=== PATIENT | female | born 1975 | race Caucasian/White ===

== ENCOUNTER 2018-01-03 00:55 | Outpatient (CLI) | payer OTHER, SELFPAY ==
--- NOTE | 2018-01-03 14:00 | MERGE_ITS ---
*[facility]* *[facility]* [address] [place] [address] Date of study: 01/03/2018 Transthoracic Echocardiography M-mode, complete 2D, complete spectral Doppler, and color Doppler *STUDY CONCLUSIONS* Summary: 1. Left ventricle: The cavity size was normal. Wall thickness was normal. Systolic function was normal. The estimated ejection fraction was 55-60%. Wall motion was normal; there were no regional wall motion abnormalities. 2. Right ventricle: The cavity size was normal. Systolic function was normal. 3. Inferior vena cava: The vessel was patent and normal in size. The respirophasic diameter changes were in the normal range (greater than or equal to 50%), consistent with normal central venous pressure. *PATIENT PRESENTATION* Height: 162.6cm ((64in) ) S/D Pressure: 109 / 63 Weight: 72.6kg ((159.7lb) ) BSA: 1.83m^2 Test start time: 02:00 PM. Test stop time: 03:50 PM. 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 This study was interpreted by [facility]. Pertinent images and digital data are archived for permanent storage and are available for subsequent review. No prior study was available for comparison. Study status: Routine. Transthoracic echocardiography. M-mode, complete 2D, complete spectral Doppler, and color Doppler. A Transthoracic Echocardiogram was performed. Scanning was performed from the parasternal, apical, subcostal, and suprasternal notch acoustic windows. Images were obtained using an [id number] cardiac ultrasound machine. Image quality was adequate. Study completion: The patient tolerated the procedure well. There were no complications. History: PMH: Ventricular premature depolarization. PVCs. palpitations. *CARDIAC ANATOMY* Left ventricle: The cavity size was normal. Wall thickness was normal. Systolic function was normal. The estimated ejection fraction was 55-60%. Wall motion was normal; there were no regional wall motion abnormalities. Diastolic parameters were normal. There was no evidence of elevated ventricular filling pressure by Doppler parameters. Aortic valve: Trileaflet; normal thickness leaflets. Mobility was not restricted. Doppler: Transvalvular velocity was within the normal range. There was no stenosis. There was no significant regurgitation. VTI ratio of LVOT to aortic valve: 0.7. Valve area (VTI): 2.1cm^2. Indexed valve area (VTI): 1.1cm^2/m^2. Peak velocity ratio of LVOT to aortic valve: 0.68. Valve area (Vmax): 2cm^2. Indexed valve area (Vmax): 1.1cm^2/m^2. Mean velocity ratio of LVOT to aortic valve: 0.71. Valve area (Vmean): 2.1cm^2. Indexed valve area (Vmean): 1.2cm^2/m^2. Mean gradient (S): 3.5mm Hg. Peak gradient (S): 6.1mm Hg. Aorta: Aortic root: The aortic root was normal in size. Ascending aorta: The ascending aorta was normal in size. Mitral valve: Structurally normal valve. Mobility was not restricted. Doppler: Transvalvular velocity was within the normal range. There was no evidence for stenosis. There was trivial regurgitation. Valve area by pressure half-time: 4.1cm^2. Indexed valve area by pressure half-time: 2.3cm^2/m^2. Left atrium: The atrium was normal in size. Right ventricle: The cavity size was normal. Systolic function was normal. Pulmonic valve: The pulmonary valve appears to be grossly normal. Doppler: Transvalvular velocity was within the normal range. There was no evidence for stenosis. There was trivial regurgitation. Tricuspid valve: Structurally normal valve. Doppler: Transvalvular velocity was within the normal range. There was no evidence for stenosis. There was trivial regurgitation. Pulmonary artery: The main pulmonary artery was normal-sized. Pulmonary systolic pressure was within the normal range, in the range of 20mm Hg to 25mm Hg. Right atrium: The atrium was normal in size. Pericardium: There was no pericardial effusion. Systemic veins: Inferior vena cava: Well visualized. The vessel was patent and normal in size. The respirophasic diameter changes were in the normal range (greater than or equal to 50%), consistent with normal central venous pressure. Baseline ECG: Normal sinus rhythm. Measurements Left ventricle Value Reference LV ID, ED, PLAX 4.6 cm 3.5 - 6.0 LV ID, ES, PLAX 3.3 cm 2.1 - 4.0 LV PW thickness, ED, PLAX 1.0 cm LV end-diastolic volume, 1-p A2C 98 ml LV ejection fraction, 1-p A2C 57 % LV end-diastolic volume, 1-p A4C 103 ml LV ejection fraction, 1-p A4C 55 % LV e', lateral 0.13 m/sec LV E/e', lateral 5 LV e', medial 0.097 m/sec LV E/e', medial 7 LV e', average 0.114 m/sec LV E/e', average 6 Ventricular septum Value Reference IVS thickness, ED, PLAX 0.8 cm LVOT Value Reference LVOT ID, A-P 2.0 cm LVOT area 3 cm^2 LVOT peak velocity, S 0.84 m/sec LVOT mean velocity, S 0.65 m/sec LVOT VTI, S 18.8 cm LVOT peak gradient, S 2.8 mm Hg LVOT mean gradient, S 1.8 mm Hg Stroke volume (SV), LVOT DP 57 ml Stroke index (SV/bsa), LVOT DP 31 ml/m^2 Aortic valve Value Reference Aortic valve peak velocity, S 1.2 m/sec Aortic valve mean velocity, S 0.91 m/sec Aortic valve VTI, S 27.0 cm Aortic mean gradient, S 3.5 mm Hg Aortic peak gradient, S 6.1 mm Hg VTI ratio, LVOT/AV 0.7 Aortic valve area, VTI 2.1 cm^2 Velocity ratio, peak, LVOT/AV 0.68 Aortic valve area, peak velocity 2 cm^2 Velocity ratio, mean, LVOT/AV 0.71 Aortic valve area, mean velocity 2.1 cm^2 Aortic valve area/bsa, mean velocity 1.2 cm^2/m^2 Aorta Value Reference Aortic root ID, ED 2.6 cm Ascending aorta ID, A-P, S 3.0 cm RVOT Value Reference RVOT VTI, S 15.2 cm Left atrium Value Reference LA ID, A-P, ES 3.0 cm LA ID/bsa, A-P 1.6 cm/m^2 <=2.2 LA area, ES, A4C 17.9 cm^2 8.8 - 23.4 LA area, ES, A2C 15 cm^2 LA volume/bsa, ES, 1-p A4C 30 ml/m^2 LA volume, ES, 2-p 42 ml LA volume/bsa, ES, 2-p 23 ml/m^2 LA/aortic root ratio 1.14 Mitral valve Value Reference Mitral E-wave peak velocity 0.65 m/sec Mitral A-wave peak velocity 0.46 m/sec Mitral deceleration time 183 ms 150 - 230 Mitral pressure half-time 53 ms Mitral E/A ratio, peak 1.4 Mitral valve area, PHT, DP 4.1 cm^2 Pulmonary veins Value Reference Pulmonary vein peak velocity, S 0.38 m/sec Pulmonary vein peak velocity, D 0.44 m/sec Pulmonary vein velocity ratio, peak, 0.85 S/D Pulmonary vein A-wave reversal peak 0.24 m/sec velocity Pulmonary vein A-wave reversal 122 ms duration Tricuspid valve Value Reference Tricuspid regurg peak velocity 2.6 m/sec Tricuspid peak RV-RA gradient 27.2 mm Hg Right atrium Value Reference RA area, ES, A4C 16.5 cm^2 8.3 - 19.5 Legend: (L) and (H) lorena values outside specified reference range. I have personally reviewed the images and have reviewed and edited the reported findings. Electronically signed by Asael Wood 01/03/2018 15:22
== END 2018-01-03 01:15 ==
PROVIDERS: PCP Nurse Practitioner Family; Visit Provider Nurse Practitioner Family
DX: R00.1 Bradycardia, unspecified (principal); I49.3 Ventricular premature depolarization
CPT/HCPCS: 93306

== ENCOUNTER 2018-03-15 13:43 | Outpatient (CLI) | payer OTHER, SELFPAY ==
[2018-03-15 15:22] LABS: Anion Gap 9.1 mmol/L (3-11); BUN 15 mg/dL (7-18); CO2 28.9 mmol/L (21.0-32.0); CREATININE 0.84 mg/dL (0.55-1.02); Calcium 9.1 mg/dL (8.5-10.1); Chloride 101 mmol/L (98-107); Cholesterol 216 mg/dL (50-200); Glucose 87 mg/dL (70-100); HDL Cholesterol 61 mg/dL (40-60); LDL CHOLESTEROL 134 mg/dL (<100); Magnesium 1.6 mg/dL (1.8-2.4); Sodium 139 mmol/L (136-145); TSH (W/Ref FT4) 1.13 uIU/mL (0.358-3.74); Triglyceride 77 mg/dL (30-150)
[2018-03-16 12:03] LABS: HIV-1/2 Ag & Ab Screen Negative (NEGAT)
[2018-03-16 16:36] LABS: Syphilis IgG Ab w/Reflex Negative (Negative)
[2018-03-18 11:05] LABS: Hepatitis C Ab w Rflx HCV PCR Negative (NEGAT)
== END 2018-03-15 14:03 ==
PROVIDERS: PCP Nurse Practitioner Family; Visit Provider Nurse Practitioner Family
DX: R00.2 Palpitations (principal); E78.5 Hyperlipidemia, unspecified; N89.8 Other specified noninflammatory disorders of vagina; Z11.3 Encounter for screening for infections with a predominantly sexual mode of transmission; Z11.4 Encounter for screening for human immunodeficiency virus [HIV]; Z11.59 Encounter for screening for other viral diseases
CPT/HCPCS: 36415; 80048; 80061; 83721; 86803; 87389; 83735; 84443; 86780

== ENCOUNTER 2018-03-15 18:52 | Outpatient (REF) | payer OTHER, SELFPAY ==
[2018-03-18 13:56] LABS: Chlamydia Result Negative; GC Result Negative; Specimen Description vaginal
== END 2018-03-15 19:12 ==
LOC: LBN 18:52
PROVIDERS: PCP Nurse Practitioner Family; Visit Provider Nurse Practitioner Family
DX: N89.8 Other specified noninflammatory disorders of vagina (principal); Z11.3 Encounter for screening for infections with a predominantly sexual mode of transmission
CPT/HCPCS: 87491; 87591; 87480; 87510; 87660

== ENCOUNTER 2018-10-10 20:11 | Outpatient (REF) | payer OTHER, SELFPAY ==
[2018-10-11 14:17] LABS: Chlamydia Result Negative; GC Result Negative; Specimen Description vaginal
== END 2018-10-10 20:31 ==
LOC: LBN 20:11
PROVIDERS: PCP Nurse Practitioner Family; Visit Provider Nurse Practitioner Family
DX: N76.0 Acute vaginitis (principal); Z11.3 Encounter for screening for infections with a predominantly sexual mode of transmission
CPT/HCPCS: 87491; 87591; 87480; 87510; 87660

== ENCOUNTER 2018-12-27 10:17 | Outpatient (CLI) | payer OTHER, SELFPAY ==
[2018-12-27 13:31] LABS: Anion Gap 9.9 mmol/L (3-11); BUN 20 mg/dL (7-18); CO2 29.1 mmol/L (21.0-32.0); CREATININE 0.88 mg/dL (0.55-1.02); Calcium 9.1 mg/dL (8.5-10.1); Calculated LDL 117 mg/dL; Chloride 103 mmol/L (98-107); Cholesterol 197 mg/dL (50-200); Glucose 84 mg/dL (70-100); HDL Cholesterol 70 mg/dL (40-60); Potassium 4.1 mmol/L (3.5-5.1); Sodium 142 mmol/L (136-145); Triglyceride 50 mg/dL (30-150)
[2018-12-30 19:31] LABS: Magnesium 1.8 mg/dL (1.8-2.4)
== END 2018-12-27 10:37 ==
PROVIDERS: PCP Nurse Practitioner Family; Visit Provider Nurse Practitioner Family
DX: E78.5 Hyperlipidemia, unspecified (principal); E83.42 Hypomagnesemia
CPT/HCPCS: 36415; 80048; 80061; 83036; 83735

== ENCOUNTER 2020-01-01 10:53 | Outpatient (REF) | payer OTHER, SELFPAY ==
--- NOTE | 2020-01-01 09:20 | PAPFT_PTH ---
PATIENT: Jay Davis LOC: [facility] U#:[id number] AGE/SX: 44/F ROOM: RE01/01/[address]: LAMIN Tarango : 1975 BED: DIS: 01/01/2020 SPEC #: [id number] RECD: 01/01/20 12:57 STATUS: YENNI RERuiz #: [id number] RADHIKA: 01/01/20 09:[address]: Elidia Vázquez DEPT: [facility] Cytology RECD BY: Zakia Olivas Tissues: 1 - CX/ENDOCX FOR PAP SMEARS Procedures: PAP THIN PREP/UVM Screening HPV DNA PROBE Comments: [id number]
== END 2020-01-01 11:13 ==
LOC: LBN 10:53
PROVIDERS: PCP Nurse Practitioner Family; Visit Provider Nurse Practitioner Family
DX: Z12.4 Encounter for screening for malignant neoplasm of cervix (principal); Z11.51 Encounter for screening for human papillomavirus (HPV); Z87.42 Personal history of other diseases of the female genital tract
CPT/HCPCS: 88142; 87624

== ENCOUNTER 2020-08-20 16:22 | Outpatient (REF) | payer SELFPAY ==
[2020-08-23 14:58] LABS: Chlamydia Result Negative (Negative); GC Result Negative (Negative)
== END 2020-08-20 16:23 | disposition home or self-care (01) ==
LOC: LBN 16:22
PROVIDERS: PCP Nurse Practitioner Family; Visit Provider Obstetrics & Gynecology Gynecology
DX: Z11.3 Encounter for screening for infections with a predominantly sexual mode of transmission (principal)
CPT/HCPCS: 87491; 87591

== ENCOUNTER 2020-12-01 16:50 | Outpatient (REF) | payer OTHER, SELFPAY | END 2020-12-01 16:51 | disposition home or self-care (01) | LOC: LBN 16:50 | PROVIDERS: PCP Nurse Practitioner Family; Visit Provider Physician Assistant | DX: L02.412 Cutaneous abscess of left axilla (principal) | CPT/HCPCS: 87070; 87205 ==

== ENCOUNTER 2021-01-28 03:06 | Outpatient (CLI) | payer OTHER, SELFPAY ==
[2021-01-28 13:16] LABS: BUN 17 mg/dL (7-18); Calcium 8.9 mg/dL (8.5-10.1); Glucose 88 mg/dL (74-106)
[2021-01-28 13:17] LABS: Anion Gap 7.6 mmol/L (3-11); CO2 28.4 mmol/L (21.0-32.0); Calculated LDL 103 mg/dL (<100); Chloride 106 mmol/L (98-107); Cholesterol 175 mg/dL (<200); Estimated GFR 59.43 (mL/min/1.73m2); HDL Cholesterol 60 mg/dL (40-60); Potassium 4.3 mmol/L (3.5-5.1); Sodium 142 mmol/L (136-145); Triglyceride 61 mg/dL (<150)
[2021-01-28 14:51] LABS: Hemoglobin A1C 5.1 % (<5.7)
== END 2021-01-28 03:07 | disposition home or self-care (01) ==
LOC: LOS 03:06
PROVIDERS: PCP Nurse Practitioner Family; Visit Provider Nurse Practitioner Family
DX: E78.5 Hyperlipidemia, unspecified (principal)
CPT/HCPCS: 36415; 80048; 80061; 83036

== ENCOUNTER 2021-10-18 10:58 | Day surgery (SDC) | payer OTHER, SELFPAY ==
[2021-10-17 10:25] VITALS: BP 104/72; PULSE 71; RESP 18; TEMP 36.6; O2SAT 99
--- NOTE | 2021-10-17 22:17 | COLE_ITS ---
Colonoscopy Report Date of procedure: 10/18/21 Pre-op diagnosis general: Father had CRC can Post-op diagnosis procedure note: other (polyps) Surgeon: Khloe Moore Anesthesia Type: General:No Airway Estimated blood loss (mL): 1 Pathology: other Complications: None Disposition: same day Prep: Miralax/Dulcolax Retraction Time: 20 Procedure Description: After informed consent was obtained the patient was taken to the procedure room and placed in a left decubitous position. Monitors were applied and a time out was done. The patients name, date of , procedure, allergies to medications and metal in their body was reviewed. The patient was then sedated. Once sedat ed and comfortable a rectal exam was done. External exam was normal. Internal exam revealed a normal sphincter tone and no palpable masses. The scope was then introduced and retrofelexed. No without internal hemorrhoids were identified. The scope was then advanced to the cecum difficulty. The TI and appendiceal orifice were identified. The prep was BB PS 3 in all segments for a total of 9. The scope was then slowly retracted over 15 minutes back into the rectum. There are no diverticula visualized. The mucosa is pink and healthy. She had multiple polyps removed. She had x4 polyps at 20 cm. These are small flat 5 mm polyps that are removed with a cold biting forcep. She has another flat 5 mm polyp at 30 cm that is removed with a cold biting forcep. She has a 0.75 cm pedunculated polyp at 30 cm that is removed with cold snare. A clip was placed across this. All specimens are retrieved and no bleeding is noted. the scope was removed and the patient was woken up and taken back to Same day surgery in stable condition. The patient tolerated the procedure well and there were no immediate complications. Follow up: The patient should follow up in 3-5 years unless they develop changes in bowel habits or other new gastrointestinal complaints.
--- NOTE | 2021-10-17 22:19 | PDOC.DSDIS_ITS ---
Discharge Plan Disposition Patient Disposition: HOME Condition: Good Discharge Details Reason For Visit: colon scope Attending Provider: Khloe Moore Primary Care Provider: Elidia Vázquez Home Meds and New Rx's Prescriptions: No Action metronidazole 0.75 % gel 1 appful vaginal .COMPLEX 5 Days Qty: 70 5RF Rx Instructions: 1 appful vaginal twice a week for 16 weeks; multivitamin [Daily Multi-Vitamin] Tablet 1 tab PO DAILY rizatriptan [Maxalt] 10 mg tablet 10 mg PO ONCE PRN (Reason: migraine headache) Qty: 90 1RF Rx Instructions: Take 1 pill once at onset of migraine. May repeat x 1 after 2hrs if migraine persists Discharge Instructions Additional Instructions: DSU Colonoscopy Post- Op Instructions Instructions for Everyone who is given Anesthesia: For your safety, please do the following for the next twenty-four (24) hours: *Do Not operate a motor vehicle (car, truck, motorcycle, etc.) *Do Not drink alcoholic beverages or use any recreational drugs for the first 24 hours or while taking pain medications. The medications in your body may have a reaction that can be dangerous. *Do Not make any important decisions or sign any important papers. Findings: Polyps x6 Follow up: Repeat scope in 3-5 years My office will send a letter in 2-3 weeks time w/ the results of pathology and when we want you to repeat the colonoscopy, probably 3-5 yrs. 1. No lifting over 20 pounds or strenuous activity for the first 24 hours after your procedure. After 24 hours there are no restrictions on your activity but you may feel fatigued for a few days. 2. After you arrive home you may have a light meal and return to your normal diet as you can tolerate it without feeling sick to your stomach. 3. You may have a bloated, gaseous feeling in your belly (abdomen) after a colonoscopy. Passing gas and belching will help. Walking or lying down on your left side with your knees flexed may relieve the discomfort. Call the office at [phone] (Office) or [phone] (Hospital) right away if you notice any of the following: a.Vomiting of blood or ?coffee ground stools?. b.Rectal bleeding 1Tbsp, blood clots or continuous bleeding. c.Severe belly (abdominal) pain. d.A hard distended belly (abdomen) and an inability to pass gas. 4. Please don?t expect to have a normal BM (bowel movement) for 2-3 days after your procedure. 5. If there are questions regarding the findings of your procedure, please contact your doctor 6. If you are unable to contact your doctor with a problem, contact the hospital at [phone]. 7. Continue all your regular medications unless directed otherwise. I understand the above instructions and have no questions. Signature of Patient or Adult Escort Name of Responsible Adult Escort Signature of Nurse Date/Time Activity:: see above Diet:: see above Discharge Orders Discharge Orders: Discharge Order (Routine); Ordered 10/17/21 Ordered By: Khloe Moore
--- NOTE | 2021-10-18 12:52 | W.ANESPRE ---
General Info Date of Service Date Performed: 10/18/21 Height: 5 ft 4.5 in Weight: 80.8 kg Body Mass Index (BMI): 30.1 Surgical Procedure: Operation Date: 10/18/21 13:20 Proposed Procedure Side Surgeon hunter Moore, DO Meds Allergies and Home Medications Allergies Allergy/AdvReac Type Severity Reaction Status Date / Time tramadol Allergy Severe Verified 10/18/21 11:32 amoxicillin trihydrate Allergy Intermediate rash Verified 10/18/21 11:32 [From Augmentin] potassium clavulanate Allergy Intermediate rash Verified 10/18/21 11:32 [From Augmentin] Sulfa (Sulfonamide Allergy Intermediate Hives Verified 10/18/21 11:32 Antibiotics) codeine AdvReac Severe vomiting Verified 10/18/21 11:32 Home Medication Medication Instructions Recorded multivitamin (Daily Multi-Vitamin 1 tab PO DAILY 02/04/19 tablet) metronidazole 0.75 % vaginal gel 1 appful vaginal .COMPLEX 5 days 01/10/21 #70 grams rizatriptan 10 mg tablet (Maxalt) 10 mg PO ONCE PRN migraine 05/18/21 headache #90 tabs Current Visit Medications: Current Medications Generic Name Dose Route Start Last Admin Trade Name Freq PRN Reason Stop Dose Admin Hyoscyamine Sulfate 0.125 mg 10/17/21 22:17 Hyoscyamine 0.125 Mg Sl/Oral/Chew SL DIRECTED PRN Ringer's Solution 1,000 mls @ 80 mls/hr 10/18/21 06:00 IV 11/16/21 23:59 INFUSION [facility] IV Miscellaneous Supplies 1 each 10/18/21 06:00 Iv Access IV 11/16/21 23:59 DIRECTED [facility] Ondansetron HCl 4 mg 10/17/21 22:17 Ondansetron 4 Mg/2 Ml Vial IVP Q4H PRN PRN Nausea / Vomiting Sodium Chloride 0 ml 10/18/21 06:00 Normal Saline Flush 10 Ml Syr IV 11/16/21 23:59 PRN PRN Sodium Chloride 0 ml 10/18/21 06:00 Normal Saline 10 Ml Vial IJ 11/16/21 23:59 DIRECTED PRN Sterile Water 0 ml 10/18/21 06:00 Water,Injection,Sterile 10 Ml Vial IJ 11/16/21 23:59 DIRECTED PRN PFSH Active Problems Active Problems: Problem Status Onset Code Screening for colon cancer Z12.11 Medical History Medical History Bacterial vaginosis 3 episodes since February 2019. Unable to tolerate p.o. metronidazole. Recommended vaginal MetroGel. Cigarette smoker Fibrocystic disease of breast Confirmed by biopsy [place] [facility] [place]. Yearly mammograms at [facility]. Heavy menstrual bleeding Hyperlipidemia Migraine headache without aura Medical History Comments:: 10/17/21 17:00 smoked marijuana Pt reports PONV Surgical History Surgical History H/O LEEP (08/1999) S/P tonsillectomy and adenoidectomy Tobacco Smoking/Tobacco Use Status: Current every day Passive smoking exposure: Yes Second hand exposure: No Alcohol Alcohol Intake: current Alcohol intake frequency: 0-2 drinks per day Alcohol type: hard liquor Substance Use Substance use: Occasionally Details: Smoked marijuana 10/18/21 Prental History History 2 Para 1 Hx # Term Pregnancies Multiple births Hx # Pregnancies Ectopic pregnancies AB induced 1 Hx Number of Living Children 1 AB spontaneous Vital Signs and Lab Results Vital Signs Most Recent Vital Signs in EMR: Most Recent Vital Signs Temp Pulse Resp BP Pulse Ox 36.6 C 71 18 104/72 99 10/17/21 10:25 10/17/21 10:25 10/17/21 10:25 10/17/21 10:25 10/17/21 10:25 Lab Results Blood Type / Crossmatch: No Data to Display Complete Blood Count: No Data to Display Complete Metabolic Panel: No Data to Display Liver Function Panel: No Data to Display Coagulation Panel: No Data to Display Cardiac Panel: No Data to Display Arterial Blood Gas: No Data to Display Venous Blood Gas: No Data to Display Pancreas Panel: No Data to Display Thyroid Panel: No Data to Display Infectious Disease: No Data to Display Blood Cultures: No Data to Display Toxicology Panel: No Data to Display Panel: No Data to Display Imaging and Studies Imaging and Studies Study information below may be from another EMR and interpreted by another provider. Please see original notes in EMR for more complete details. Echocardiogram Summary: Summary: 1. Left ventricle: The cavity size was normal. Wall thickness was normal. Systolic function was normal. The estimated ejection fraction was 55-60%. Wall motion was normal; there were no regional wall motion abnormalities. 2. Right ventricle: The cavity size was normal. Systolic function was normal. 3. Inferior vena cava: The vessel was patent and normal in size. The respirophasic diameter changes were in the normal range (greater than or equal to 50%), consistent with normal central venous pressure. Anesthesia Assessment and Plan Anesthesia History Personal History: PONV Family History: No Family History of Anesthesia Complications Exercise Tolerance Exercise Tolerance: Metabolic Equivalents>4 Cardiac & Pulmonary Exam Cardiac Exam: Normal S1/S2 Heart Sounds Pulmonary Exam: Clear Bilateral Breath Sounds Implantable Cardiac Device Does patient have a Pacemaker or an ICD?: No Airway Exam Known Difficult Airway: No Mallampati Class: 1 Mouth Opening: Normal (> 3cm) Thyromental Distance: Greater than 3 cm Neck Range of Motion: Full ROM Neck Circumference: Normal Teeth Condition: Normal Dentition ASA Classification ASA Score: ASA 2 Emergency Case?: No NPO Status NPO Status: NPO Clears >2 hours, Solids >8 hours Status Status: Negative HCG Anesthesia Plan Resuscitation Status: Full Code Anesthesia Technique: General Anesthesia Airway Planned: Natural Airway Monitors Used: Standard Monitors
[2021-10-18 12:56] VITALS: BMI 30.1
[2021-10-18] MEDS: Lactated Ringers 1,000 ML 80 ML IV (13:02)
--- NOTE | 2021-10-18 13:55 | BOWEL_PTH ---
PATIENT: Jay Davis LOC: [facility] U#:[id number] AGE/SX: 45/F ROOM: RE10/18/[address]: Khloe Moore : 1975 BED: DIS: 10/18/2021 SPEC #: [id number] RECD: 10/18/21 17:16 STATUS: YENNI [facility] #: [id number] RADHIKA: 10/18/21 13:[address]: Khloe Moore DEPT: Surgical Specimen RECD BY: Zakia Olivas ENTERED: 10/18/21 17:17 SP TYPE: Bowel OTHR DR: Elidia Vázquez, APPLIANCE COUNSELOR Tissues: 1 - BIOPSY BOWEL 2 - BIOPSY BOWEL 3 - BIOPSY BOWEL Procedures: GROSS AND MICRO LEVEL 4 Comments: [id number]
[2021-10-18 14:25] VITALS: BP 99/77; PULSE 69; RESP 18; TEMP 36.5; O2SAT 99
--- NOTE | 2021-10-18 14:46 | W.ANESPOSTOP ---
Postoperative Evaluation Date, Time and Location Date Performed: 10/18/21 Time Performed: 14:25 Patient Location: Day Surgery Unit Vital Signs Most Recent Imported Vital Signs: Most Recent Vital Signs Temp Pulse Resp BP Pulse Ox 36.5 C 69 18 99/77 L 99 10/18/21 14:25 10/18/21 14:25 10/18/21 14:25 10/18/21 14:25 10/18/21 14:25 Pain Score Most Recent Pain Score: Most Recent Pain Score Pain Level 0 10/17/21 10:25 Assessment Mental Status: Awake (Alert & Oriented to Patient Baseline) Airway and Respiratory Function: Patent airway with normal (patient baseline) respiratory exam Cardiovascular Function: Hemodynamically Stable Hydration Status: Adequately Hydrated Nausea & Vomiting: No Nausea or Vomiting Pain: Pt. Denies Any Pain Peripheral Nerve Block: Patient did not receive a nerve block
[2021-10-18 14:54] VITALS: BP 111/81; PULSE 66; RESP 18; TEMP 36.5; O2SAT 100
== END 2021-10-18 15:40 | disposition home or self-care (01) ==
PROVIDERS: PCP Nurse Practitioner Family; Visit Provider Surgery
PROC: 0DJD8ZZ Inspection of Lower Intestinal Tract, Via Natural or Artificial Opening Endoscopic (ICD-10-PCS; CPT 45378; principal; 2021-10-18 13:15)
DX: Z12.11 Encounter for screening for malignant neoplasm of colon (principal); K63.5 Polyp of colon; Z80.0 Family history of malignant neoplasm of digestive organs
CPT/HCPCS: 45385; 45380; 88305

== ENCOUNTER 2022-01-23 03:02 | Outpatient (CLI) | payer OTHER, SELFPAY ==
[2022-01-23 07:42] LABS: Anion Gap 6.6 mmol/L (3-11); BUN 12 mg/dL (7-18); CO2 28.4 mmol/L (21.0-32.0); CREATININE 0.9 mg/dL (0.55-1.02); Calcium 8.7 mg/dL (8.5-10.1); Calculated LDL 138 mg/dL (<100); Chloride 104 mmol/L (98-107); Cholesterol 206 mg/dL (<200); Estimated GFR 78.86 (mL/min/1.73m2); Glucose 96 mg/dL (74-106); HDL Cholesterol 60 mg/dL (40-60); Potassium 3.9 mmol/L (3.5-5.1); Sodium 139 mmol/L (136-145); Triglyceride 44 mg/dL (<150)
== END 2022-01-23 03:03 | disposition home or self-care (01) ==
LOC: LBO 03:02
PROVIDERS: PCP Nurse Practitioner Family; Visit Provider Nurse Practitioner Family
DX: E66.9 Obesity, unspecified (principal); E78.5 Hyperlipidemia, unspecified
CPT/HCPCS: 36415; 80048; 80061; 83036; 84443

== ENCOUNTER 2022-01-23 23:36 | Outpatient (REF) | payer OTHER, SELFPAY | END 2022-01-23 23:37 | disposition home or self-care (01) | LOC: LBN 23:36 | PROVIDERS: PCP Nurse Practitioner Family; Visit Provider Obstetrics & Gynecology | DX: N89.8 Other specified noninflammatory disorders of vagina (principal) | CPT/HCPCS: 87480; 87510; 87660 ==

== ENCOUNTER 2022-02-07 02:51 | Outpatient (CLI) | payer OTHER, SELFPAY ==
[2022-02-08 11:12] LABS: FSH 40.8 mIU/mL (See Note)
== END 2022-02-07 02:52 | disposition home or self-care (01) ==
LOC: LBO 02:51
PROVIDERS: PCP Nurse Practitioner Family; Visit Provider Obstetrics & Gynecology
DX: R10.2 Pelvic and perineal pain (principal)
CPT/HCPCS: 36415; 83001

== ENCOUNTER 2022-02-14 12:56 | Outpatient (REF) | payer OTHER, SELFPAY ==
--- NOTE | 2022-02-14 15:00 | ENDOMET_PTH ---
PATIENT: Jay Davis LOC: [facility] U#:[id number] AGE/SX: 46/F ROOM: RE02/14/[address]: Snow Cervantes DO : 1975 BED: DIS: 02/14/2022 SPEC #: [id number] RECD: 02/15/22 12:58 STATUS: SOUBrenda REQ #: [id number] RADHIKA: 02/14/22 15:[address]: Snow Cervantes DEPT: Surgical Specimen RECD BY: Zakia Olivas ENTERED: 02/15/22 12:59 SP TYPE: Endomet OTHR DR: LAMIN Tarango Tissues: 1 - ENDOMETRIUM BX/SO Procedures: GROSS AND MICRO LEVEL 4 Comments: [id number]
== END 2022-02-14 12:57 | disposition home or self-care (01) ==
LOC: LBN 12:56
PROVIDERS: PCP Nurse Practitioner Family; Visit Provider Obstetrics & Gynecology
DX: R93.89 Abnormal findings on diagnostic imaging of other specified body structures (principal)
CPT/HCPCS: 88305

== ENCOUNTER 2022-05-12 21:59 | Outpatient (REF) | payer OTHER, SELFPAY | END 2022-05-12 22:00 | disposition home or self-care (01) | LOC: LBN 21:59 | PROVIDERS: PCP Nurse Practitioner Family; Visit Provider Family Medicine | DX: J02.9 Acute pharyngitis, unspecified (principal) | CPT/HCPCS: 87070 ==

== ENCOUNTER 2023-02-19 07:37 | Emergency (ER) | payer OTHER, SELFPAY ==
--- NOTE | 2023-02-19 07:30 | RT.EKG_ITS ---
APPROVED REPORT Exam: Resting ECG Reason for Exam: chest pain Patient Location: E HR:77 bpm ECG Measurements Heart Rate 77 AXIS KS 174 P 50 QRSd 79 QRS 3 QT 383 T 26 QTc 429 Conclusion Sinus rhythm...normal P axis, V-rate 60- 99 Low voltage, precordial leads...precordial leads <1.0mV
[2023-02-19 07:54] VITALS: BP 117/88; PULSE 76; RESP 18; TEMP 36.8; O2SAT 99
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
[2023-02-19 08:21] VITALS: RESP 18
[2023-02-19] MEDS: Aspirin 81 MG CHEW 324 MG CH (08:31)
[2023-02-19 08:38] LABS: Abs Immature Grans 0.01 10^3/uL (0.0-0.06); Absolute Basophil Count 0.04 10^3/uL (0.0-0.2); Absolute Eosinophil Count 0.12 10^3/uL (0.0-0.7); Absolute Lymphocyte Count 1.29 10^3/uL (1.2-3.4); Absolute Neutrophil Count 2.42 10^3/uL (1.2-6.7); Eosinophils % 2.9; HGB 12.9 g/dL (11.2-15.7); Immature Grans % 0.2; Lymphocytes % 30.9; MCH 30.1 pg (27.0-33.0); MCHC 33.1 % (32.0-36.0); MCV 91 fL (80-95); MPV 10.3 fL (8.0-11.0); Monocytes % 7.2; Neutrophils % 57.8; Platelet Count 181 10^3/uL (130-400); RBC 4.29 10^6/uL (3.93-5.22); RDW 11.6 % (11.7-14.6); RDW-SD 38.2 fL; WBC 4.18 10^3/uL (4.4-10.8)
[2023-02-19 09:05] LABS: ALT 39 U/L (14-59); AST 18 U/L (15-37); Albumin 3.5 g/dL (3.4-5.0); Alkaline Phosphatase 77 U/L (46-116); Anion Gap 7.9 mmol/L (3-11); BUN 21 mg/dL (7-18); Bilirubin, Total 0.2 mg/dL (0.2-1.0); CO2 28.1 mmol/L (21.0-32.0); CREATININE 0.9 mg/dL (0.55-1.02); Calcium 9.1 mg/dL (8.5-10.1); Chloride 106 mmol/L (98-107); Estimated GFR 78.37 (mL/min/1.73m2); Glucose 98 mg/dL (74-106); Magnesium 1.7 mg/dL (1.8-2.4); NT-proBNP 134 pg/mL (<300); Potassium 3.7 mmol/L (3.5-5.1); Sodium 142 mmol/L (136-145); Total Protein 6.9 g/dL (6.4-8.2)
[2023-02-19 09:08] LABS: Troponin I < 50 ng/L (<or=60)
[2023-02-19 09:15] LABS: D-Dimer 272 ng/mlFEU (<500)
--- NOTE | 2023-02-19 09:45 | DI.RAD_ITS ---
Exam(s) XR CHEST 2V PA LATERAL EXAM: XR CHEST 2V PA LATERAL CLINICAL HISTORY: chest pain. TECHNIQUE: 2D digital imaging was performed. COMPARISON: No exams were available for comparison FINDINGS: 2 views: Heart size is normal. The mediastinum is not widened. Lungs are clear. No infiltrates nor pleural effusions. IMPRESSION: No acute pulmonary findings. DATA REPOSITORY: RADIATION DOSE DELIVERED:
[2023-02-19 11:50] LABS: Troponin I < 50 ng/L (<or=60)
[2023-02-19 12:01] VITALS: BP 114/67; PULSE 63; RESP 18; TEMP 37; O2SAT 98
== END 2023-02-19 12:12 | disposition home or self-care (01) ==
PROVIDERS: Emergency Provider Physician Assistant; PCP Nurse Practitioner Family
DX: R07.9 Chest pain, unspecified (principal); R11.0 Nausea; F17.210 Nicotine dependence, cigarettes, uncomplicated
CPT/HCPCS: 36415; 80053; 93005; 99283; 71046; 83735; 83880; 84484; 85025; 85379; 93010

== ENCOUNTER → 2023-05-15 02:52 | Outpatient (CLI) | payer OTHER, SELFPAY ==
--- NOTE | 2023-05-15 05:45 | DI.MAMMO_ITS ---
Exam(s) MAMMO SCREENING EXAM: MAMMO SCREENING CLINICAL HISTORY: screening,z12.39 TECHNIQUE: Mammograms were interpreted according to the usual protocol including computer analysis w An[employer] CAD system, tomosynthesis and C-view imaging. COMPARISON: MG Combo Bilateral from 05/24/2018 MG Combo Bilateral from 05/24/2018 MG Combo Bilateral from 10/02/2019 MG Combo Bilateral from 11/19/2020 FINDINGS: The breasts are composed of scattered fibroglandular densities, Breast Density category B. No suspicious masses or suspicious microcalcifications are seen. Biopsy marker clip again noted in t he upper outer quadrant of the left breast. No change in nearby benign-appearing calcifications. No skin thickening or abnormal axillary lymph nodes are seen. There has been no significant change from prior exams. IMPRESSION: BI-RADS Category 2 - Negative Mammogram with benign findings. Yearly screening mammography is recomm ended. Breast Density - Category B, scattered fibroglandular densities. A negative radiographic report should not delay biopsy if a dominant or clinically suspicious mass is present. Up to ten percent of cancers are not identified on mammography. A negative report may reinforce clinical impression. Adenosis and dense breasts may obscure an underlying neoplasm. False positive reports average 6 to 10%. Patient will receive a letter notifying them of these results.
--- NOTE | 2023-05-15 05:45 | DI.US_ITS ---
Exam(s) US PELVIS TRANSVAGINAL EXAM: US PELVIS TRANSVAGINAL CLINICAL HISTORY: ensure resolution of right ovarian cyst,n83.201. TECHNIQUE: Transabdominal and transvaginal pelvic ultrasound was performed using standard protocol. COMPARISON: US US PELVIS TRANSVAGINAL from 02/07/2022 FINDINGS: UTERUS: Position: Anteverted. Size: 6.3 long by 3.6 AP by 3.9 transverse cm Endometrium: 0.7 cm. Normal for patient's menstrual status. Myometrium: There is a 1.4 x 0.8 x 1.1 cm hypoechoic mass in the anterior uterus is most consistent w ith a fibroid. Cervix: Unremarkable. OVARIES: Right: 2.7 x 0.8 x 1.7 cm Cyst or mass: No suspicious cystic or solid masses. The previously seen right ovarian cyst has resol trevor. Left: 2.3 x 0.8 x 1.0 cm Cyst or mass: No suspicious cystic or solid masses. DOPPLER: Color: Symmetric and uniform flow to both ovaries. CUL-DE-SAC: Free fluid: None. Other: None. IMPRESSION: 1. Uterine fibroid. 2. Unremarkable bilateral ovaries. DATA REPOSITORY:
== END ==
PROVIDERS: PCP Nurse Practitioner Family; Visit Provider Nurse Practitioner Family
DX: Z12.31 Encounter for screening mammogram for malignant neoplasm of breast (principal); N83.201 Unspecified ovarian cyst, right side
CPT/HCPCS: 77063; 77067; 76830; 76856

== ENCOUNTER 2023-05-17 05:25 | Outpatient (CLI) | payer OTHER, SELFPAY ==
[2023-05-17 08:21] LABS: Anion Gap 11.5 mmol/L (3-11); BUN 30 mg/dL (7-18); CO2 25.5 mmol/L (21.0-32.0); CREATININE 1.2 mg/dL (0.55-1.02); Calcium 9.4 mg/dL (8.5-10.1); Calculated LDL 153 mg/dL (<100); Chloride 103 mmol/L (98-107); Cholesterol 220 mg/dL (<200); Estimated GFR 55.49 (mL/min/1.73m2); Glucose 101 mg/dL (74-106); HDL Cholesterol 56 mg/dL (40-60); Potassium 4.4 mmol/L (3.5-5.1); Sodium 140 mmol/L (136-145); TSH (W/Ref FT4) 2.35 uIU/mL (0.36-3.74); Triglyceride 59 mg/dL (<150)
== END 2023-05-17 05:26 | disposition home or self-care (01) ==
LOC: LBO 05:25
PROVIDERS: PCP Nurse Practitioner Family; Visit Provider Nurse Practitioner Family
DX: Z00.00 Encounter for general adult medical examination without abnormal findings (principal)
CPT/HCPCS: 36415; 80048; 80061; 83036; 84443

== ENCOUNTER 2023-07-10 05:01 | Outpatient (CLI) | payer OTHER, SELFPAY ==
[2023-07-10 13:02] LABS: Anion Gap 10.3 mmol/L (3-11); BUN 26 mg/dL (7-18); CO2 27.7 mmol/L (21.0-32.0); Calcium 9.2 mg/dL (8.5-10.1); Chloride 102 mmol/L (98-107); Estimated GFR 69.06 (mL/min/1.73m2); Glucose 88 mg/dL (74-106); Potassium 3.8 mmol/L (3.5-5.1); Sodium 140 mmol/L (136-145)
== END 2023-07-10 05:02 | disposition home or self-care (01) ==
LOC: LBO 05:01
PROVIDERS: PCP Nurse Practitioner Family; Visit Provider Nurse Practitioner Family
DX: N28.9 Disorder of kidney and ureter, unspecified (principal)
CPT/HCPCS: 36415; 80048

== ENCOUNTER 2024-05-08 07:46 | Outpatient (CLI) | payer BC, SELFPAY ==
[2024-05-08 16:35] LABS: ALT 36 U/L (14-59); AST 22 U/L (15-37); Albumin 4.1 g/dL (3.4-5.0); Alkaline Phosphatase 73 U/L (46-116); Anion Gap 8.7 mmol/L (3-11); BUN 22 mg/dL (7-18); Bilirubin, Total 0.39 mg/dL (0.2-1.0); CO2 29.3 mmol/L (21.0-32.0); Calcium 9.6 mg/dL (8.5-10.1); Calculated LDL 136 mg/dL (<100); Chloride 105 mmol/L (98-107); Cholesterol 219 mg/dL (<200); Estimated GFR 68.63 (mL/min/1.73m2); Glucose 87 mg/dL (74-106); HDL Cholesterol 69 mg/dL (40-60); Potassium 4.5 mmol/L (3.5-5.1); Sodium 143 mmol/L (136-145); Total Protein 7.4 g/dL (6.4-8.2); Triglyceride 72 mg/dL (<150)
[2024-05-08 19:13] LABS: HBs Antibody, Quant <3.1 mIU/mL (See Note); Hep B Surface Ab Negative (See Note); Hepatitis B Core Antibody Negative (Negative); Hepatitis B Surface Antigen Negative (Negative)
== END 2024-05-08 07:47 | disposition home or self-care (01) ==
LOC: LOS 07:46
PROVIDERS: PCP Nurse Practitioner Family; Referring Provider Nurse Practitioner Family; Visit Provider Nurse Practitioner Family
DX: Z11.59 Encounter for screening for other viral diseases (principal); E78.5 Hyperlipidemia, unspecified; N95.9 Unspecified menopausal and perimenopausal disorder
CPT/HCPCS: 36415; 80053; 80061; 86704; 86706; 87340

== ENCOUNTER 2024-05-08 12:40 | Outpatient (REF) | payer BC, SELFPAY ==
--- NOTE | 2024-05-08 07:30 | PAPFT_PTH ---
PATIENT: Jay Davis LOC: [facility] U#:[id number] AGE/SX: 48/F ROOM: RE05/08/[address]: LAMIN Tarango : 1975 BED: DIS: 05/08/2024 SPEC #: [id number] RECD: 05/08/24 12:56 STATUS: YENNI RERuiz #: [id number] RADHIKA: 05/08/24 07:[address]: Elidia Vázquez [facility] Cytology RECD BY: Zakia Olivas Tissues: 1 - CX/ENDOCX FOR PAP SMEARS Procedures: PAP THIN PREP/UVM Screening HPV DNA PROBE Comments: [id number] (HPV 16 & 18/45)
== END 2024-05-08 12:41 | disposition home or self-care (01) ==
LOC: LBN 12:40
PROVIDERS: PCP Nurse Practitioner Family; Visit Provider Nurse Practitioner Family
DX: E78.5 Hyperlipidemia, unspecified (principal); N95.9 Unspecified menopausal and perimenopausal disorder; F17.210 Nicotine dependence, cigarettes, uncomplicated
CPT/HCPCS: 88142; 87624

== ENCOUNTER 2024-06-09 02:10 | Outpatient (CLI) | payer BC, SELFPAY ==
--- NOTE | 2024-06-09 08:26 | DI.MAMMO_ITS ---
Exam(s) MAMMO SCREENING EXAM: MAMMO SCREENING CLINICAL HISTORY: screening,z12.39. TECHNIQUE: Bilateral full field digital CC and MLO mammographic images were obtained with 3D tomosyn thesis and utilizing computer aided detection (CAD). COMPARISON: Prior mammograms were reviewed. FINDINGS: No new left breast findings. Small group of microcalcifications in the upper outer quadrant of the l eft breast appears stable when compared to previous and there is a biopsy marker clip in this vicinit y again noted. In the right breast there are 2 findings: There is a small 3 mm nodular density seen on the MLO view 4.5 cm in from the nipple, oval-shaped and noncalcified, not previously present. Additional imaging of this finding recommended. In addition, on the CC view there is an asymmetric density seen centrally in the right breast which i s possibly a summation of shadows located 6 cm in from the nipple but appearing more prominent than o n prior mammograms and therefore additional imaging recommended. There is no skin thickening-retraction. IMPRESSION: 1. No radiographic evidence of malignancy in left breast. 2. There are 2 separate right breast findings as described above. Spot compression CC and MLO views are recommended as well as breast ultrasound. BI-RADS Category 0 - Incomplete: Need additional imaging evaluation Breast Density - Category B - Scattered areas of fibroglandular density Breast density Category C or D implies that the patient has dense breast tissue. Dense breast tissue can make it harder to find cancer on a mammogram. Dense breast tissue is also associated with an incr eased risk of breast cancer. This information about the result of the mammogram report was provided to the patient to raise their awareness. Use this report when you speak with the patient about their risks for breast cancer, which includes their family history. At that time, you may recommend additional screening tests (Ultrasoun d or MRI) as these tests may add significant information. A negative radiographic report should not delay biopsy if a dominant or clinically suspicious mass is present. Up to ten percent of cancers are not identified on mammography. A negative report may reinforce clinical impression. Adenosis and dense breasts may obscure an underlying neoplasm. False positive reports average 6 to 10%. Patient will receive a letter notifying them of these results.
== END 2024-06-09 02:30 ==
LOC: DI 02:10
PROVIDERS: PCP Nurse Practitioner Family; Visit Provider Nurse Practitioner Family
DX: Z12.31 Encounter for screening mammogram for malignant neoplasm of breast (principal); R92.323 Mammographic fibroglandular density, bilateral breasts
CPT/HCPCS: 77063; 77067

== ENCOUNTER 2024-06-16 01:13 | Outpatient (CLI) | payer BC, SELFPAY ==
--- NOTE | 2024-06-16 | DI.MAMMO_ITS ---
Exam(s) MG MAMMO SCREEN CALL BACK UNI US BREAST RT COMPLETE EXAM: MG MAMMO SCREEN CALL BACK UNI and U/S breast RT complete CLINICAL HISTORY: 3 mm nodular density 4.5 cm from nipple, oval-shaped and noncalcified, Rt. TECHNIQUE: Craniocaudal and mediolateral oblique Full Field Digital Mammography views of the right b reast with Computer Aided Diagnosis followed by Tomosynthesis and right breast ultrasound. All [address] of the right breast were evaluated sonographically in addition to the right retroareolar regio n and right axilla. COMPARISON: Comparison is made with prior examinations. FINDINGS: Mammography/Tomosynthesis: Masses/Architectural Distortion: The asymmetric area in the central right breast on the craniocaudad view does not persist. It appears represent overlying fibroglandular tissue. Nodule in the upper ri ght breast on the MLO view also does not persist. No suspicious masses or areas of architectural dis tortion are present. Microcalcifictions: No suspicious pleomorphic-type are seen. Skin Thickening/Nipple Retraction: None. Complete right breast US: Echotexture: Normal appearance of the glandular tissue. Shadowing: No suspicious foci. Cyst: None. Solid lesions: None seen. Ductal dilation: None. IMPRESSION: 1. No evidence of malignancy is noted. 2. Unless there is more urgent need, follow-up screening mammography is recommended, as per [employer] guidelines. 3. The findings were discussed with the patient on the date of the examination. BI-RADS Category 1 - Negative Breast Density - Category B - Scattered areas of fibroglandular density Breast density Category C or D implies that the patient has dense breast tissue. Dense breast tissue can make it harder to find cancer on a mammogram. Dense breast tissue is also associated with an incr eased risk of breast cancer. This information about the result of the mammogram report was provided to the patient to raise their awareness. Use this report when you speak with the patient about their risks for breast cancer, which includes their family history. At that time, you may recommend additional screening tests (Ultrasoun d or MRI) as these tests may add significant information. A negative radiographic report should not delay biopsy if a dominant or clinically suspicious mass is present. Up to ten percent of cancers are not identified on mammography. A negative report may reinforce clinical impression. Adenosis and dense breasts may obscure an underlying neoplasm. False positive reports average 6 to 10%. Patient will receive a letter notifying them of these results.
== END 2024-06-16 01:33 ==
LOC: DI 01:13
PROVIDERS: PCP Nurse Practitioner Family; Visit Provider Nurse Practitioner Family
DX: Z12.31 Encounter for screening mammogram for malignant neoplasm of breast (principal); R92.323 Mammographic fibroglandular density, bilateral breasts
CPT/HCPCS: 76642; 77063; 77067